=== PATIENT | male | born 1965 | race Caucasian/White ===

== ENCOUNTER 2017-04-09 03:16 | Emergency (ER) | payer MEDICAID ==
[~2017-04-09] VITALS: Ht 177.8 cm; Wt 95.2 kg
[2017-04-09 03:18] VITALS: BP 143/98; PULSE 74; RESP 16; TEMP 98.2; O2SAT 99
[2017-04-09] MEDS ORDERED: LISI-515 PO (03:37)
[2017-04-09] MEDS ORDERED: AMLO5TAB2 PO (03:37)
--- NOTE | 2017-04-09 03:40 | PD ---
HPI Chief Complaint: GI Complaint Time Seen by Provider: 03:36 Travel History International Travel<30 days: No Contact w/Intl Traveler<30days: No Traveled to known affect area: No History of Present Illness HPI Patient is a 52-year-old male who tonight had a juice box from the store which potentially had a lot of ascitic fruits and it. He then 5 minutes later developed severe burning in his epigastrium. He's had a endoscopy about 3 months ago and he was treated for H. pylori with a two-week course of the treatment for H. pylori. He said he eats carefully now doesn't drink much ascitic tomato sauce or piccante foods knowing they cause him GERD like symptoms he hasn't had much problem however the drink juice was unusual for him to drink. He also complains of a headache which is not sure if it's related to the juice acidic or whether his blood pressure is involved with that as well. Patient did not take any antacids for this he went to the rescue right next the wall on [facility] and they did an EKG and told him everything was fine. He left there and walked to the ER this all happened within the last hour. The pain is a burning stabbing feeling in his epigastrium does not radiate PFSH Social History Tobacco Use: No Allergies-Medications (Allergen,Severity, Reaction): Coded Allergies: No Known Allergies (Verified Allergy, Unknown, 04/09/17) Reported Meds & Prescriptions Reported Meds & Active Scripts Active Nexium (Esomeprazole DR) 20 Mg Capdr 20 Mg PO DAILY Pepcid (Famotidine) 20 Mg Tab 20 Mg PO BID Lidocaine Viscous Liq 2 % Liqd 5 Ml SWISH-SWAL QID PRN Reported Amlodipine (Amlodipine Besylate) 5 Mg Tab 5 Mg PO DAILY Lisinopril 20 Mg Tab 20 Mg PO DAILY Review of Systems Except as stated in HPI: all other systems reviewed are Neg HENT: Positive: Headaches Gastrointestinal: Positive: Nausea, Abdominal Pain Physical Exam Narrative GENERAL: no apparent distress SKIN: Warm and dry. HEAD: Atraumatic. Normocephalic. EYES: Pupils equal and round. No scleral icterus. No injection or drainage. ENT: No nasal bleeding or discharge. Mucous membranes pink and moist. NECK: Trachea midline. No JVD. CARDIOVASCULAR: Regular rate and rhythm. RESPIRATORY: No accessory muscle use. Clear to auscultation. Breath sounds equal bilaterally. GASTROINTESTINAL: Abdomen soft, non-tender, nondistended. Hepatic and splenic margins not palpable. MUSCULOSKELETAL: Extremities without clubbing, cyanosis, or edema. No obvious deformities. NEUROLOGICAL: Awake and alert. No obvious cranial nerve deficits. Motor grossly within normal limits. Five out of 5 muscle strength in the arms and legs. Normal speech. PSYCHIATRIC: Appropriate mood and affect; insight and judgment normal. Data Data Last Documented VS Vital Signs Date Time Temp Pulse Resp B/P (MAP) Pulse Ox O2 Delivery O2 Flow Rate FiO2 04/09/17 04:36 77 16 99 04/09/17 04:31 Room Air 04/09/17 03:18 98.2 Orders Orders Al-Mag Hy-Si 40-40-4 Mg/Ml Liq (Mag-Al P (04/09/17 03:45) Lidocaine 2% Viscous (Xylocaine 2% Visco (04/09/17 03:45) Electrocardiogram (04/09/17 ) Pantoprazole (Protonix) (04/09/17 04:15) Famotidine (Pepcid) (04/09/17 04:15) Acetaminophen (Tylenol) (04/09/17 04:30) Ed Discharge Order (04/09/17 04:31) MDM Medical Decision Making Medical Screen Exam Complete: Yes Emergency Medical Condition: Yes Interpretation(s) EKG is NSR at a Rate of 64 Differential Diagnosis GERD vs pancreatitis vs GB disease vs costochondritis vs abdo pain NOS other Narrative Course GI cocktail given to relieve GERD like symptoms 20 minutes after drink he feels much better then protonix and pepcid and discharged home . EKG normal Sinus rhythm Diagnosis Primary Impression: Hiatal hernia with GERD Additional Impression: Gastritis Qualified Codes: K29.70 - Gastritis, unspecified, without bleeding Scripts Esomeprazole DR (Nexium) 20 Mg Capdr 20 MG PO DAILY, #42 CAP 0 Refills Prov: Tiago Crowder MD 04/09/17 Famotidine (Pepcid) 20 Mg Tab 20 MG PO BID, #20 TAB 0 Refills Prov: Tiago Crowder MD 04/09/17 Lidocaine Viscous Liq (Lidocaine Viscous Liq) 2 % Liqd 5 ML SWISH-SWAL QID Y for PAIN, #1 BOTTLE 0 Refills Prov: Tiago Crowder MD 04/09/17 Disposition: 01 DISCHARGE HOME Condition: Good Tiago Crowder MD Apr 09, 2017 03:40
[2017-04-09] MEDS ORDERED: ALUMINUM/MAGNESIUM/SIMETH 30 ML CUP PO ONE (03:45)
[2017-04-09] MEDS ORDERED: LIDOCAINE VISCOUS 2% SOLN 15 ML UDC SWISH-SWAL ONE (03:45)
[2017-04-09] MEDS ORDERED: LIDO1SOL8 SWISH-SWAL (04:10)
[2017-04-09] MEDS ORDERED: FAMO1TAB37 PO (04:10)
[2017-04-09] MEDS ORDERED: NEXI20CA PO (04:11)
[2017-04-09] MEDS ORDERED: FAMOTIDINE 20 MG TAB PO ONE (04:15)
[2017-04-09] MEDS ORDERED: PANTOPRAZOLE SOD 40 MG DELAYED RELEASE TAB PO ONE (04:15)
[2017-04-09] MEDS ORDERED: ACETAMINOPHEN 500 MG CPLT PO ONE (04:30)
[2017-04-09 04:31] VITALS: BP 146/88; PULSE 72; RESP 16; O2SAT 99
--- NOTE | 2017-04-09 13:30 | EKG ---
Date Performed: 04/09/2017 Time Performed: 03:56:59 PTAGE: 52 years EKG: Sinus rhythm MINIMAL VOLTAGE CRITERIA FOR LVH, CONSIDER NORMAL VARIANT BORDERLINE ECG NO PREVIOUS TRACING DOCTOR: Reinaldo Jhaveri Interpretating Date/Time 04/09/2017 13:29:00
== END 2017-04-09 04:43 | disposition home or self-care (01) ==
LOC: PHED 03:16
DX: K44.9 Diaphragmatic hernia without obstruction or gangrene (principal); K21.9 Gastro-esophageal reflux disease without esophagitis; K29.70 Gastritis, unspecified, without bleeding
CPT/HCPCS: 93005; 99283